=== PATIENT | female | born 1960 | race Caucasian/White ===

== ENCOUNTER → 2018-11-06 09:03 | Outpatient (CLI) | payer OTHER, SELFPAY ==
--- NOTE | 2018-11-06 | DI.RAD.S_ITS ---
PROCEDURE: XR LUMBAR SPINE MIN 4V INDICATIONS: BACK PAIN TECHNIQUE: 3 views of the lumbar spine acquired. COMPARISON: None. FINDINGS: Bones: 5 nonrib-bearing vertebrae are present. There is levoconvex scoliotic curvature with apex at T12-L1. This reduces with leftward bending and is slightly exacerbated with rightward bending. Multilevel significant disc space narrowing is present throughout the lumbar spine. Trace retrolisthesis is present of L2 on L3, L4 and L5. Foraminal narrowing is difficult to assess secondary to overlapping structures. However, it still to present to a significant degree at L2-3, L3-4 and L5-S1. No vertebral body compression fractures. No suspicious bony lesions. Soft tissues: Overlying bowel gas pattern is normal. No suspicious soft tissue calcifications. IMPRESSION: Scoliotic curvature as above with multilevel disc and foraminal narrowing. Dictated by: Alka Muñoz M.D. on 11/07/2018 at 17:00 Approved by: Alka Muñoz M.D. on 11/07/2018 at 17:02
--- NOTE | 2018-11-06 | DI.RAD.S_ITS ---
PROCEDURE: XR THORACIC SPINE 3V INDICATIONS: BACK PAIN TECHNIQUE: 3 views of the thoracic spine were acquired. COMPARISON: None. FINDINGS: Bones: No fractures or dislocations. No suspicious bony lesions. 12 pairs of ribs are noted, and appear intact where visualized. There is 31 degree dextroconvex S-shaped scoliotic curvature with apex at T8 and L2-3. Multilevel degenerative disc space narrowing is present. Soft tissues: No paravertebral stripe thickening. IMPRESSION: 1. Scoliotic curvature as above with degenerative change. Dictated by: Alka Muñoz M.D. on 11/06/2018 at 12:24 Approved by: Alka Muñoz M.D. on 11/06/2018 at 12:26
== END ==
PROVIDERS: Family Provider Family Medicine; PCP Family Medicine; Visit Provider Nurse Practitioner Family
DX: M54.5 Low back pain (principal); M48.04 Spinal stenosis, thoracic region; M48.061 Spinal stenosis, lumbar region without neurogenic claudication; M41.85 Other forms of scoliosis, thoracolumbar region; G89.29 Other chronic pain
CPT/HCPCS: 72072; 72110

== ENCOUNTER → 2019-07-31 10:40 | Outpatient (CLI) | payer OTHER, SELFPAY ==
--- NOTE | 2019-07-31 | DI.CT.S_ITS ---
PROCEDURE: CT CHEST WO CON INDICATIONS: Other chest pain TECHNIQUE: Noncontrast 5 mm thick sections acquired from the pulmonary apices to the posterior costophrenic angles. 1 mm lung window, 5 mm thick coronal and sagittal and 7 mm axial MIP reformats were then acquired. For radiation dose reduction, the following was used: automated exposure control, adjustment of mA and/or kV according to patient size. COMPARISON: [facility], CT, THORAX WITHOUT CONTRAST, 04/10/2017, 9:22. FINDINGS: Image quality: Excellent. Lungs and pleura: There is moderate bullous emphysema. No acute air space opacities. No pleural effusions or pneumothorax. Central and peripheral airways are patent and normal in caliber. There are multiple pulmonary nodules, unchanged since 04/10/17. 5 nodules are listed below: Nodule #1: Right middle lobe, 5 mm, solid, series 3 image 210. Nodule #2: Right middle lobe, 3 mm, solid, series 3 image 213. Nodule #3: Right upper lobe, 3 mm, solid, series 3 image 187. Nodule #4: Left upper lobe, 3 mm, solid, series 3 image 159. Nodule #5: Linula, 4 mm, ground glass, series 3 image 217. Mediastinum: Heart size is normal. No pericardial effusion. No mediastinal adenopathy by size criteria. Thoracic aorta and central pulmonary arteries are normal in size. Esophagus is normal in caliber. No hiatal hernia. Bones and chest wall: There is scoliosis. No suspicious bony lesions. No vertebral body compression fractures. No axillary or supraclavicular adenopathy by size criteria. There is a 3 mm nodule in the right thyroid lobe. Abdomen: Visualized upper abdominal solid organs and bowel loops appear normal in the absence of contrast. IMPRESSION: 1. Multiple pulmonary nodules bilaterally, unchanged since , most likely sequelae of granulomatous infections. 2. Moderate bullous emphysema. 3. A 3 mm right thyroid nodule. Thyroid ultrasound is suggested for followup. Dictated by: Moshe Yun M.D. on 07/31/2019 at 13:15 Approved by: Moshe Yun M.D. on 07/31/2019 at 17:22
== END ==
PROVIDERS: PCP Family Medicine; Visit Provider Family Medicine
DX: R07.89 Other chest pain (principal); J43.8 Other emphysema; R91.8 Other nonspecific abnormal finding of lung field; E04.1 Nontoxic single thyroid nodule
CPT/HCPCS: 71250

== ENCOUNTER → 2019-09-03 08:41 | Outpatient (CLI) | payer OTHER, SELFPAY ==
--- NOTE | 2019-09-03 | DI.US.S_ITS ---
PROCEDURE: US THYROID INDICATIONS: THYROID NODULE TECHNIQUE: Real-time scanning was performed of the thyroid gland, with image documentation. COMPARISON: [facility], CT, CT CHEST WO CON, 07/31/2019, 10:42. FINDINGS: Right: Thyroid lobe measures 4.3 x 1.4 x 1.6 cm, and is heterogeneous in echotexture. Left: Thyroid lobe measures 3.7 x 1.1 x 1.5 cm, and is homogenous in echotexture. Isthmus: 2.5 mm thick. Both lobes have a diffusely lobulated internal echotexture with multiple nodules, at least 4 on the right and at least 2 on the left, mostly iso-echoic with indistinct ill-defined margins. There is a coarse calcification in the left midpole measuring 2 mm. None of the nodules measure greater than 1.3 cm in maximal diameter. No definite extrathyroidal extension of nodule. IMPRESSION: 1. Nonenlarged, multinodular thyroid gland. 2. One year followup is recommended. Dictated by: Laura Emerson M.D. on 09/03/2019 at 11:09 Approved by: Laura Emerson M.D. on 09/03/2019 at 11:34
== END ==
PROVIDERS: PCP Family Medicine; Visit Provider Family Medicine
DX: E04.2 Nontoxic multinodular goiter (principal)
CPT/HCPCS: 76536

== ENCOUNTER → 2020-02-18 09:14 | Outpatient (CLI) | payer OTHER, SELFPAY ==
--- NOTE | 2020-02-18 | DI.RAD.S_ITS ---
PROCEDURE: XR KNEE LT 3V INDICATIONS: Chronic pain in both knees TECHNIQUE: 3 views of the knee were acquired. COMPARISON: [facility], CR, XR KNEE RT 3V, 02/18/2020, 8:51. [facility], CR, XR KNEE STANDING BI, 02/18/2020, 8:36. FINDINGS: Bones: No fractures or dislocations. No suspicious bony lesions. Soft tissues: No joint effusion. No suspicious soft tissue calcifications. IMPRESSION: A symmetric pattern of moderate medial and lateral compartment degenerative knee joint osteoarthritis is noted when compared to the right knee from earlier today. Mild patellofemoral joint osteoarthritis is present. No trauma found. Dictated by: Alex Mosley M.D. on 02/18/2020 at 11:43 Approved by: Alex Mosley M.D. on 02/18/2020 at 11:43
--- NOTE | 2020-02-18 | DI.RAD.S_ITS ---
PROCEDURE: XR KNEE RT 3V INDICATIONS: Chronic pain in both knees TECHNIQUE: A set of 3 views of the knee were acquired. COMPARISON: [facility], CR, XR KNEE STANDING BI, 02/18/2020, 8:36. FINDINGS: Bones: No fractures or dislocations. No suspicious bony lesions. There is a moderate degree of medial and lateral compartment joint space narrowing, no trauma found. Mild patellofemoral joint osteoarthritis is present, without effusion or loose body. Soft tissues: No joint effusion. No suspicious soft tissue calcifications. IMPRESSION: Mild to moderate degenerative changes along the 3 compartments of the right knee. No trauma found. Dictated by: Alex Mosley M.D. on 02/18/2020 at 11:42 Approved by: Alex Mosley M.D. on 02/18/2020 at 11:43
--- NOTE | 2020-02-18 | DI.RAD.S_ITS ---
PROCEDURE: XR KNEE STANDING BI INDICATIONS: Chronic midline low back pain TECHNIQUE: Single frontal views of the bilateral knees, weightbearing. COMPARISON: None. FINDINGS: Bones: No acute fractures or dislocations. Patellar alignment is normal on the sunrise view. No suspicious bony lesions. Joint spaces appear moderately reduced but with weightbearing. Soft tissues: No knee joint effusions. No suspicious soft tissue calcification. IMPRESSION: Moderately reduced medial and lateral compartment joint spaces on weight bearing frontal projections. No trauma found. Dictated by: Alex Mosley M.D. on 02/18/2020 at 11:25 Approved by: Alex Mosley M.D. on 02/18/2020 at 11:25
--- NOTE | 2020-02-18 | DI.RAD.S_ITS ---
PROCEDURE: XR LUMBAR SPINE MIN 4V INDICATIONS: Chronic pain in both knees TECHNIQUE: A set of 4 views of the lumbar spine acquired. COMPARISON: [facility], CR, XR LUMBAR SPINE MIN 4V, 11/06/2018, 9:43. FINDINGS: Bones: 5 nonrib-bearing vertebrae are present. There is levoscoliotic bony alignment, moderate in severity, previously present. No vertebral body compression fractures. No suspicious bony lesions. The degenerative disc disease present has not appreciably worsened from October 2018. Facet osteoarthritis also remains moderate in severity from L2-S1. Soft tissues: Overlying bowel gas pattern is normal. No suspicious soft tissue calcifications. Flexion/extension: There is normal range of motion, with preserved normal alignment. IMPRESSION: No stable appearance of degenerative disc disease that is moderate in severity from L2 inferiorly, with associated bilateral facet osteoarthritis also moderate in severity without worsening from October 2018 comparison studies. The convex leftward scoliosis has not worsened centered at the upper lumbosacral spine. No compression fracture has developed. Dictated by: Alex Mosley M.D. on 02/18/2020 at 11:26 Approved by: Alex Mosley M.D. on 02/18/2020 at 11:41
--- NOTE | 2020-02-18 | DI.RAD.S_ITS ---
PROCEDURE: XR HIP W PEL IF DONE LT MIN 4V INDICATIONS: Chronic hip pain TECHNIQUE: AP pelvis with lateral view(s) of the bilateral hip(s). COMPARISON: [facility], CR, XR LUMBAR SPINE MIN 4V, 11/06/2018, 9:43. FINDINGS: Bones: No fractures or dislocations. Pelvic ring appears intact. No suspicious bony lesions. Soft tissues: The visualized bowel gas pattern is normal. No suspicious soft tissue calcifications. IMPRESSION: Mild symmetric hip joint osteoarthritis without trauma. Dictated by: Alex Mosley M.D. on 02/18/2020 at 11:41 Approved by: Alex Mosley M.D. on 02/18/2020 at 11:42
== END ==
PROVIDERS: PCP Family Medicine; Referring Provider Family Medicine; Visit Provider Family Medicine
DX: M25.561 Pain in right knee (principal); M25.562 Pain in left knee; M17.12 Unilateral primary osteoarthritis, left knee; M25.552 Pain in left hip; M16.0 Bilateral primary osteoarthritis of hip; M54.5 Low back pain; M51.36 Other intervertebral disc degeneration, lumbar region; M47.816 Spondylosis without myelopathy or radiculopathy, lumbar region; M47.817 Spondylosis without myelopathy or radiculopathy, lumbosacral region; G89.29 Other chronic pain
CPT/HCPCS: 72110; 73521; 73562; 73565

== ENCOUNTER → 2021-05-19 14:13 | Outpatient (CLI) | payer OTHER, SELFPAY ==
[2021-05-19 20:02] LABS: COVID19 - ORCAS (NP or Nasal) Negative (Negative)
== END ==
PROVIDERS: PCP Family Medicine; Visit Provider Family Medicine
DX: Z20.822 Contact with and (suspected) exposure to COVID-19 (principal)
CPT/HCPCS: U0003

== ENCOUNTER → 2021-09-19 09:19 | Outpatient (CLI) | payer OTHER, SELFPAY ==
[2021-09-19 20:40] LABS: COVID19 - ORCAS (NP or Nasal) Negative (Negative)
== END ==
PROVIDERS: PCP Family Medicine; Visit Provider Physician Assistant
DX: Z20.822 Contact with and (suspected) exposure to COVID-19 (principal)
CPT/HCPCS: U0003

== ENCOUNTER 2021-09-20 09:35 | Day surgery (SDC) | payer OTHER, SELFPAY ==
[2021-09-20 11:52] VITALS: BP 151/72; PULSE 58; RESP 16; TEMP 36.4; O2SAT 98; BMI 25.0
[2021-09-20] MEDS: PROPARACAINE 0.5% OPHTH SOL 2 DROPS EYE-OP (12:00)
[2021-09-20] MEDS: CATARACT EYE COMPOUND (10 DROPS/SYRINGE) 3 DROPS EYE-OP (12:05)
--- NOTE | 2021-09-20 12:39 | PM.PREOP ---
Pre-operative Note Interval Note History & Physical reviewed/Exam performed by Physician: Yes Changes to H&P: No
--- NOTE | 2021-09-20 12:39 | PM.OP.1 ---
Operative Date/Time/Diagnoses Pre-op diagnosis: Nuclear Cataract Left eye Post-op diagnosis: same Procedure & Clinicians Same procedure as scheduled: Yes Surgeon: Richard Colon Anesthesia Type: MAC +/- and Sedation Operative Notes Procedure in detail: Patient brought to the operating suite. Tetracaine drops placed in the left eye. Marking instrument was used to felicita vertical and horizontal meridians. Patient was prepped and draped in sterile manner. Wire lid speculum was placed in the eye. Marking instrument was used to felicita the 70 degree meridian. Betadine drops were placed on the eye. This was irrigated. Lidocaine jelly was placed on the eye. A paracentesis port was created with a side-port blade. 0.1 mL 1% preservative free lidocaine was injected into the anterior chamber. The anterior chamber was deepened with viscoelastic. 2.6 mm keratome was used to create a temporal clear corneal incision. Cystotome and Utrata forceps were used to create continuous tear capsulorrhexis. Balanced salt solution was used to hydro dissect the nucleus. The phacoemulsification handpiece was inserted and the nucleus was removed using the stop and chop technique. The irrigation aspiration handpiece was inserted and the remaining cortex was removed. Anterior chamber was deepened with viscoelastic. An Moran [id number] intraocular lens with a power of 18.0 was injected into the capsular bag. Irrigation aspiration handpiece was inserted and the remaining viscoelastic was removed. The lens was rotated to the 70 degree meridian. Incision was hydrated with balanced salt solution and found to be leak free with pressure with Weck-Neela sponges. 0.1 mL Vigamox injected anterior chamber. 0.3 mL Kenalog 10 mg was injected subconjunctivally. Lid speculum was removed. The patient left the operating room in excellent condition. Complications: none Post-operative Condition: stable Disposition: same day surgery
[2021-09-20] MEDS: PHENYLEPHRINE/LIDOCAINE VIAL (OR) 0.2 ML EYE-OP (13:02)
[2021-09-20] MEDS: HYALURONATE SODIUM 30 MG-10 MG/ML SYRINGES 1 BOX INTRAOCULA (13:02)
[2021-09-20] MEDS: TETRACAINE 0.5% OPHTH DROPS 4 ML 2 DROPS EYE-OP (13:03)
[2021-09-20] MEDS: BALANCED SALT IRRIG SOLN NO.2 500 ML, EPINEPHrine 1 MG IRR (13:03)
[2021-09-20] MEDS: TRIAMCINOLONE 50 MG/5 ML VIAL INJ (13:03)
[2021-09-20] MEDS: LIDOCAINE 2% (GLYDO) 6 ML GEL TOP (13:03)
[2021-09-20] MEDS: MOXIFLOXACIN INJ 4 MG/0.8 ML VIAL 0.5 MG EYE-OP (13:04)
[2021-09-20 13:20] VITALS: BP 125/73; PULSE 70; RESP 16; TEMP 36.7; O2SAT 96
== END 2021-09-20 13:43 | disposition home or self-care (01) ==
PROVIDERS: PCP Family Medicine; Referring Provider Ophthalmology; Visit Provider Ophthalmology
PROC: (CPT 66984; principal; 2021-09-20 12:45)
DX: H25.12 Age-related nuclear cataract, left eye (principal); F17.210 Nicotine dependence, cigarettes, uncomplicated
CPT/HCPCS: 66984; J0171; J2250; J3301; V2787

== ENCOUNTER → 2021-10-17 09:39 | Outpatient (CLI) | payer OTHER, SELFPAY ==
[2021-10-17 20:34] LABS: COVID19 - ORCAS (NP or Nasal) Negative (Negative)
== END ==
PROVIDERS: PCP Family Medicine; Visit Provider Physician Assistant
DX: Z01.812 Encounter for preprocedural laboratory examination (principal); Z20.822 Contact with and (suspected) exposure to COVID-19
CPT/HCPCS: U0003

== ENCOUNTER 2021-10-18 10:37 | Day surgery (SDC) | payer OTHER, SELFPAY ==
[2021-10-18 11:16] VITALS: BP 118/65; PULSE 46; RESP 14; TEMP 36.8; O2SAT 98; BMI 25.0
[2021-10-18] MEDS: PROPARACAINE 0.5% OPHTH SOL 2 DROPS EYE-OP (11:32)
[2021-10-18] MEDS: CATARACT EYE COMPOUND (10 DROPS/SYRINGE) 3 DROPS EYE-OP (11:33)
--- NOTE | 2021-10-18 12:51 | P.OP.PRE_ITS ---
Pre-operative Note Interval Note History & Physical reviewed/Exam performed by Physician: Yes Changes to H&P: No Addendum Addendum Note: There are no non surgical alternatives for the patients condition. Deteriora tion of the patient's condition is expected. Delay may result in more complex future surgery.
--- NOTE | 2021-10-18 12:52 | P.OP_ITS ---
Operative Date/Time/Diagnoses Pre-op diagnosis: Nuclear cataract right eye Procedure & Clinicians Procedure: Cataract Surgery Same procedure as scheduled: Yes Surgeon: Richard Colon Anesthesia Type: MAC +/- and Sedation Operative Notes Procedure in detail: Patient brought to the operating suite. Tetracaine drops placed in the right eye. Marking instrument was used to felicita the vertical and horizontal meridians. Patient was prepped and draped in sterile manner. Wire lid speculum was placed in the eye. Marking instrument was used to felicita the 145 degree meridian. Betadine drops were placed on the eye. This was irrigated. Lidocaine jelly was placed on the eye. A paracentesis port was created with a side-port blade. 0.1 mL 1% preservative free lidocaine was injected into the anterior chamber. The anterior chamber was deepened with viscoelastic. 2.6 mm keratome was used to create a temporal clear corneal incision. Cystotome and Utrata forceps were used to create continuous tear capsulorrhexis. Balanced salt solution was used to hydro dissect the nucleus. The phacoemulsification handpiece was inserted and the nucleus was removed using the stop and chop technique. The irrigation aspiration handpiece was inserted and the remaining cortex was removed. Anterior chamber was deepened with viscoelastic. An Moran [id number] intraocular lens with a power of 22.0 was injected into the capsular bag. Irrigation aspiration handpiece was inserted and the remaining viscoelastic was removed. The lens was rotated to the 145 degree meridian. Incision was hydrated with balanced salt solution and found to be leak free with pressure with Weck-Neela sponges. 0.1 mL Vigamox injected anterior chamber. 0.3 mL Kenalog 10 mg was injected subconju nctivally. Lid speculum was removed. The patient left the operating room in excellent condition. Complications: none Post-operative Condition: stable Disposition: same day surgery
--- NOTE | 2021-10-18 13:18 | SUR.OPER ---
Supine on eye stretcher, head on extension cradle secured with tape. Arms tucked at sides with blanket. Pillow under knees.
[2021-10-18] MEDS: HYALURONATE SODIUM 30 MG-10 MG/ML SYRINGES 1 BOX INTRAOCULA (13:21)
[2021-10-18] MEDS: BALANCED SALT IRRIG SOLN NO.2 500 ML, EPINEPHrine 1 MG IRR (13:21)
[2021-10-18] MEDS: TRIAMCINOLONE 50 MG/5 ML VIAL INJ (13:21)
[2021-10-18] MEDS: MOXIFLOXACIN INJ 4 MG/0.8 ML VIAL 0.5 MG EYE-OP (13:21)
[2021-10-18] MEDS: PHENYLEPHRINE/LIDOCAINE VIAL (OR) 0.2 ML EYE-OP (13:21)
[2021-10-18] MEDS: LIDOCAINE 2% (GLYDO) 6 ML GEL TOP (13:22)
[2021-10-18] MEDS: TETRACAINE 0.5% OPHTH DROPS 4 ML 2 DROPS EYE-OP (13:22)
[2021-10-18 13:39] VITALS: BP 142/73; PULSE 45; RESP 16; TEMP 36.6; O2SAT 98
--- NOTE | 2021-10-18 13:43 | SUR.PHASEII ---
Pt ready to go, ride called, pt left when ready and left in stable condition.
== END 2021-10-18 13:59 | disposition home or self-care (01) ==
PROVIDERS: PCP Family Medicine; Referring Provider Ophthalmology; Visit Provider Ophthalmology
PROC: (CPT 66984; principal; 2021-10-18 12:45)
DX: H25.11 Age-related nuclear cataract, right eye (principal); F17.210 Nicotine dependence, cigarettes, uncomplicated
CPT/HCPCS: 66984; J0171; J2250; J3301; V2787

== ENCOUNTER → 2022-09-14 15:03 | Outpatient (CLI) | payer OTHER, SELFPAY ==
--- NOTE | 2022-09-14 15:04 | DI.US.S_ITS ---
PROCEDURE: US PELVIC COMPLETE INDICATIONS: Pelvic and perineal pain TECHNIQUE: Real-time scanning was performed of the pelvic organs, with image documentation. Additional endovaginal scanning was necessary due to incomplete visualization of the adnexal and endometrial structures by transabdominal scanning. COMPARISON: [facility], CT, ABDOMEN/PELVIS WITH CONTRAST, 06/30/2015, 12:52. FINDINGS: Uterus: Uterus is retroflexed and small in size at 4.3 x 3.2 x 2.5 cm. The myometrium is heterogeneous. The endometrium measures 5 mm combined thickness. Trace endometrial fluid is present. Ovaries: Ovaries are not visualized. Other: No pathologic free abdominal or pelvic fluid. IMPRESSION: 1. Atrophic uterus. Endometrium thickness is at upper limits normal for a postmenopausal woman. There is trace amount of endometrial fluid. A short-term follow up ultrasound is suggested in 6-12 weeks. 2. Nonvisualization of ovaries. 3. No pelvic free fluid. We strive to produce accurate, complete, and clear reports of imaging services. To assist us in improving patient care, this report was composed using standard report templates and voice recognition software. Therefore, it may contain abnormal punctuation, insertions and/or omissions. Occasional wrong-word or sound-alike substitutions may occur. Though we review the report and make efforts to correct it, we do recommend that the report be read carefully in proper context to recognize any text inaccuracies. Dictated by: Moshe Yun M.D. on 09/14/2022 at 21:09 Approved by: Moshe Yun M.D. on 09/14/2022 at 21:13
== END ==
PROVIDERS: PCP Family Medicine; Referring Provider Family Medicine; Visit Provider Family Medicine
DX: R10.2 Pelvic and perineal pain (principal)
CPT/HCPCS: 76830; 76856

== ENCOUNTER 2024-03-29 15:31 | Emergency (ER) | payer MEDICARE, OTHER, SELFPAY ==
[2024-03-29 15:41] VITALS: BP 155/71; PULSE 54; RESP 16; TEMP 36.8; O2SAT 95; BMI 25.8
--- NOTE | 2024-03-29 15:48 | DI.RAD.S_ITS ---
PROCEDURE: XR ANKLE LT MIN 3V INDICATIONS: Fall, rolled ankle, swelling and bruising TECHNIQUE: 3 views of the ankle were acquired. COMPARISON: None. FINDINGS: Bones: There is a mildly displaced fracture of the distal fibula, with intra-articular involvement. The talar dome demonstrates no loida abnormality. No suspicious lytic or blastic lesions are seen. Soft tissues: Soft tissue swelling is seen laterally. IMPRESSION: Mildly displaced, intra-articular fracture of the distal fibula. Dictated by: Fred Scott M.D. on 03/29/2024 at 15:19 Approved by: Fred Scott M.D. on 03/29/2024 at 15:20
--- NOTE | 2024-03-29 16:43 | ED_ITS ---
HPI - Extremity Injury (Lower) <GALLO Mak - Last Filed: 03/29/24 17:24> General Chief Complaint: Extremity Injury, Lower Stated Complaint: Rolled ankle Time Seen by Provider: 03/29/24 15:52 Source: patient Mode of arrival: Family Vehicle History of Present Illness HPI Narrative: 63-year-old female, former smoker, presents emergency department with a left ankle injury. Patient, who lives on [facility], tripped in her home and twisted her left ankle. Patient heard a pop and then was unable to bear weight. Patient did visit the urgent care on [facility], given a shot of Toradol, prescribed tramadol, fitted for boot and crutches and told to come to the emergency department for x-rays and evaluation. Patient reports she was unable to wear the boot due to the amount of pain she was experiencing, hence the reason she was sent to ED for x-rays. Patient denies hitting her head or any loss of consciousness. Related Data Previous Rx's Medication Instructions Recorded tramadol 50 mg tablet 50 mg PO Q6H PRN pain #20 tabs 03/29/24 Allergies Allergy/AdvReac Type Severity Reaction Status Date / Time Penicillins Allergy Mild Joint Pain Verified 10/09/23 11:04 clindamycin Allergy Unknown C-Diff Verified 10/09/23 11:04 Sulfa (Sulfonamide Allergy Unknown Verified 10/09/23 11:04 Antibiotics) Review of Systems <GALLO Mak - Last Filed: 03/29/24 17:24> Review of Systems Narrative: Narrative: See HPI. GENERAL: Denies chills, fatigue, fever, sweats. HEENT: Denies sinus pain, ear pain, sore throat, difficulty swallowing, dizziness. RESPIRATORY: Denies dyspnea, cough, wheezing, sputum. CARDIOVASCULAR: Denies chest pain, palpitations, edema. GASTROINTESTINAL: Denies nausea, vomiting, abdominal pain, diarrhea, constipation. : Denies dysuria, frequency, incontinence, hematuria, urinary retention, flank pain. MSK: Denies weakness. Endorses left ankle pain. SKIN: Denies rash, skin lesions, or pruritis. NEUROLOGIC: Denies weakness, dizziness, headache, numbness, confusion. PSYCHIATRIC: No concerning psychosocial issues. Patient History <GALLO Mak - Last Filed: 03/29/24 17:24> Surgical History Hx laparoscopic cholecystectomy Status post appendectomy Family History Mother Cancer Grandmother Heart disease Social History household members: friend(s) Smoking Status: Former smoker alcohol intake: current Smoking Status: Former smoker alcohol intake frequency: a few times a week Substance Use Type: does not use Exam <GALLO Mak - Last Filed: 03/29/24 17:24> Narrative Exam Narrative: Exam Narrative: GENERAL: This is a well-nourished, well-developed patient, in no acute distress HEAD: Atraumatic. Normocephalic. ENT: Nose without bleeding, purulent drainage. Airway patent. RESPIRATORY: Respiratory rate and effort are normal. MSK: Moves all extremities. Normal range of motion, no clubbing or edema. Neurovascularly intact. NEURO: A&O x 3. SKIN: Warm, dry, no rashes or lesions noted. ANKLE: There is swelling, bruising, but no asymmetry. There is no tenderness to general palpation. Sensation grossly intact. There is tenderness over the lateral malleolus, but no tenderness over the medial malleolus, proximal tibia/fibula. The anterior mortise is non-tender. Flexion and extension is intact. Unable to test for stability or laxity due to pain. The contralateral ankle exam is unremarkable. Initial Vital Signs Initial Vital Signs: Vital Signs Temperature 98.3 F 03/29/24 15:41 Pulse Rate 54 L 03/29/24 15:41 Respiratory Rate 16 03/29/24 15:41 Blood Pressure 155/71 H 03/29/24 15:41 Pulse Oximetry 95 03/29/24 15:41 Oxygen Delivery Method Room Air 03/29/24 15:41 Reviewed <Atul Leal DO - Last Filed: 03/29/24 17:36> Initial Vital Signs Initial Vital Signs: Vital Signs Temperature 98.3 F 03/29/24 15:41 Pulse Rate 54 L 03/29/24 15:41 Respiratory Rate 16 03/29/24 15:41 Blood Pressure 155/71 H 03/29/24 15:41 Pulse Oximetry 95 03/29/24 15:41 Oxygen Delivery Method Room Air 03/29/24 15:41 Course <GALLO Mak - Last Filed: 03/29/24 17:24> Orders Ordered: ED Orders 03/29/24 15:48 XR ankle LT min 3V Stat Vital Signs Vital signs: Vital Signs - 8 hr 03/29/24 15:41 Temperature 98.3 F Pulse Rate 54 L Respiratory Rate 16 Blood Pressure 155/71 H Pulse Oximetry 95 Oxygen Delivery Method Room Air <Atul Leal DO - Last Filed: 03/29/24 17:36> Orders Ordered: ED Orders 03/29/24 15:48 XR ankle LT min 3V Stat Vital Signs Vital signs: Vital Signs - 8 hr 03/29/24 15:41 Temperature 98.3 F Pulse Rate 54 L Respiratory Rate 16 Blood Pressure 155/71 H Pulse Oximetry 95 Oxygen Delivery Method Room Air MDM - Extremity Injury (Lower) <GALLO Mak - Last Filed: 03/29/24 17:24> Differential Diagnosis Differential diagnosis: Likely ankle sprain and strain and ankle fracture Imaging Data Extremity x-ray #1: Radiologist's Impression: [place] [address] XRay Report Signed Patient: Yaima Albarran MR#: [id number] : 1960 Acct:[id number] Age/Sex: 63 / F Date of Service: 03/29/24 Loc: ED Accession Number: [id number] Procedure: XR ankle LT min 3V Ordering Provider: Atul Leal D.O. PROCEDURE: XR ANKLE LT MIN 3V INDICATIONS: Fall, rolled ankle, swelling and bruising TECHNIQUE: 3 views of the ankle were acquired. COMPARISON: None. FINDINGS: Bones: There is a mildly displaced fracture of the distal fibula, with intra- articular involvement. The talar dome demonstrates no loida abnormality. No suspicious lytic or blastic lesions are seen. Soft tissues: Soft tissue swelling is seen laterally. IMPRESSION: Mildly displaced, intra-articular fracture of the distal fibula. Dictated by: Fred Scott M.D. on 03/29/2024 at 15:19 Approved by: Fred Scott M.D. on 03/29/2024 at 15:20 [facility] Narrative Medical decision making narrative: 63-year-old female with left ankle fracture. Assessment and HPI indicated the need for a x-ray. X-ray reveals a mildly displaced distal fibular fracture. Neurovascularly intact. Patient placed in a boot and crutches. Discussed supportive care measures such as Rest (modified activity), along with ice, compression wrap/splint-immobilize as directed and elevation above heart. Tylenol or Ibuprofen for discomfort. Discussed plan of care and return precautions with patient, verbalized understanding and was agreeable with course of action. Patient was escorted to the ED by a family friend who is a ENVIRONMENTAL LABORATORY TECHNICIAN. Discharge Plan Departure Patient Disposition: Home Clinical Impression: Ankle fracture Qualifiers: Encounter type: initial encounter Fracture type: closed Laterality: left Qualified Code(s): S82.892A - Other fracture of left lower leg, initial encounter for closed fracture Instructions: DI for Ankle Fracture Activity Restrictions/Additional Instructions: *You have been diagnosed with a left ankle fracture. The x-rays revealed a distal fibular fracture. We have fitted you for a boot and recommend you use this as much as possible to keep her ankle at 90?. Please use the crutches previously provided to you to keep weight off of that foot. Good supportive care includes Rest (modified activity), along with ice, splint-immobilize as directed and elevation above heart. Tylenol or Ibuprofen for discomfort. Please use the tramadol that was previously prescribed for breakthrough pain. Please follow-up with your family doctor in the next 7-10 days, or sooner for worsening symptoms. *What to do: *Please continue to take your regular medications as directed. [ ] New medication prescriptions sent to your pharmacy: [ ] [ ] New medication written as a paper prescription [x ] No new medications given *Please follow up with your primary care provider in 2-3 days, call for an appointment. Let them know you were seen in the Emergency Department and that we ask that you be seen in follow up. We will electronically transmit a record of today's note if your PCP is in our system *If you do not have a primary care provider please contact the [facility] Resource line at [phone]. They will ask some questions about your medical history and help get you set up with a doctor in the community. ? Return to ER if you should have any new, worsening or concerning symptoms, such as worsening pain, severe headache, confusion, chest pain, difficulty breathing, fever greater than 101 F, shaking chills, persistent vomiting to the point that you cannot drink fluids, or other new or worsening symptoms. Prescriptions: No Action ketorolac 60 mg/2 mL solution 60 mg IM ONCE Qty: 1 0RF tramadol 50 mg tablet 50 mg PO Q6H PRN (Reason: pain) Qty: 20 0RF Rx Instructions: 1-2 q 6 hours as needed for acute left ankle pain Referrals: Rose Gibson PA-C [Primary Care Provider] - Stand Alone Forms: Patient Portal/API ED Sign-out <Atul Leal DO - Last Filed: 03/29/24 17:36> Cosign ED Attending Cosignature Attestation: Dr Leal Co-Sign Statement: I was available for consultation during this patient's emergency department visit. This chart is signed by myself for administrative purposes only. I did not have direct contact with this patient during this visit. They were seen independently by the APC.
[2024-03-29 17:50] VITALS: BP 175/78; PULSE 48; RESP 16; O2SAT 98
== END 2024-03-29 17:59 | disposition home or self-care (01) ==
PROVIDERS: Emergency Provider Registered Nurse; PCP Physician Assistant
DX: S82.832A Other fracture of upper and lower end of left fibula, initial encounter for closed fracture (principal); W18.40XA Slipping, tripping and stumbling without falling, unspecified, initial encounter
CPT/HCPCS: 73610; 99281; 99283

== ENCOUNTER → 2024-06-27 10:30 | Outpatient (CLI) | payer MEDICARE, SELFPAY ==
--- NOTE | 2024-06-27 | DI.RAD.S_ITS ---
PROCEDURE: XR CHEST 2V INDICATIONS: Dyspnea TECHNIQUE: 2 views of the chest were acquired. COMPARISON: None. FINDINGS: Heart, mediastinum and pulmonary vascular: Heart is normal in size and configuration. Mediastinum is unremarkable. Pulmonary vascular is normal. Lungs: Clear Pleural spaces: Normal-no effusions or pneumothorax. Bones and soft tissues: Moderate scoliotic curve appreciated. There is mild chronic wedging of all thoracic vertebral bodies. IMPRESSION: No cardiopulmonary disease. Dictated by: Yosi Dumont M.D. on 06/30/2024 at 9:04 Approved by: Yosi Dumont M.D. on 06/30/2024 at 9:05
--- NOTE | 2024-06-27 | DI.RAD.S_ITS ---
PROCEDURE: XR DEXA AXIAL SKELETON INDICATIONS: OSTEOPENIA COMPARISON: None. FINDINGS: Lumbar Spine: Bone mineral density 0.968 g/cm2, T score -0.8 Left Hip: Bone mineral density 0.817 g/cm2, T score -1.0 Right Hip: Bone mineral density 0.836 g/cm2, T score -0.9 Fracture Risk Calculation (when applicable): 10-year fracture risk of a major osteoporotic fracture 10.0 percent and of a hip fracture 1.4 percent. (T score greater or equal to -1.0 to: NORMAL) (T score from -1.1 to -2.4: OSTEOPENIA) (T score less than or equal to -2.5: OSTEOPOROSIS) IMPRESSION: Normal bone density of the lumbar spine and hips, although approaching osteopenia at all sites. Follow-up guidelines as follows: Osteoporosis: Consider a repeat DEXA and Vertebral Fracture Assessment (VFA) exam in 2 years or sooner if medically necessary, to reassess this patient's status. Osteopenia: Consider a repeat DEXA in 2-3 years to reassess this patient's status, or if there is a new clinical indication. Normal: Consider a repeat DEXA in 5 years or sooner, or if there is a new clinical indication. All treatment decisions require clinical judgment and consideration of individual patient factors, including patient preferences, comorbidities, previous drug use, risk factors not captured in the FRAX model (e.g., frailty, falls, vitamin D deficiency, increased bone turnover, interval significant decline in bone density ) and possible under- or over-estimation of fracture risk by FRAX. In addition, the NOF Guide recommends that FDA-approved medical therapies be considered in postmenopausal women and men age >= 50 years with a: * Hip or vertebral (clinical or morphometric) fracture * T-score of <=-2.5 at the spine or hip * Ten-year fracture probability by FRAX of >= 3% for hip fracture or >=20% for major osteoporotic fracture. People with diagnosed cases of osteoporosis or at high risk for fracture should have regular bone mineral density tests. For patients eligible for Medicare, routine testing is allowed once every 2 years. The testing frequency can be increased to one year for patients who have rapidly progressing disease, those who are receiving or discontinuing medical therapy to restore bone mass, or have additional risk factors. Dictated by: Jose Galvez M.D. on 06/27/2024 at 14:08 Approved by: Jose Galvez M.D. on 06/27/2024 at 14:11
--- NOTE | 2024-06-27 | DI.MG.S_ITS ---
BILATERAL DIGITAL SCREENING MAMMOGRAM 3D/2D WITH CAD: 06/27/2024 CLINICAL: Routine screening. Baseline exam. Family history of breast cancer. No prior exams were available for comparison. The breasts are extremely dense, which lowers the sensitivity of mammography (category d />75% glandular tissue). Current study was also evaluated with a Computer Aided Detection (CAD) system. No significant masses, calcifications, or other findings are seen in either breast. IMPRESSION: NEGATIVE There is no mammographic evidence of malignancy. A 1 year screening mammogram is recommended. Based on Tyrer-Cuzick model (a risk assessment model), the patient's lifetime risk is 21.0% and her 10 year risk is 11.0%. If a patient has an elevated risk, a more comprehensive evaluation should be considered and/or a referral to a genetic counselor. The [place] [employer], [place] [employer], and NCCN Guidelines advise the consideration of Breast MRI as an adjunct to screening mammography in patients whose Lifetime risk to develop breast cancer is 20% or higher. This exam was interpreted at Station ID: [id number]. NOTE: For mammograms, a report in lay terms will be sent to the patient. Approximately 15% of breast malignancies will not be visualized mammographically. In the management of a palpable breast mass, a negative mammogram must not discourage biopsy of a clinically suspicious lesion. Electronically Signed By: Jerome gamble/leora:06/27/2024 13:11:48 letter sent: Normal Exam ACR BI-RADS Category 1: Negative
== END ==
PROVIDERS: PCP Family Medicine; Referring Provider Family Medicine; Visit Provider Family Medicine
DX: Z12.31 Encounter for screening mammogram for malignant neoplasm of breast (principal); Z80.3 Family history of malignant neoplasm of breast; R92.343 Mammographic extreme density, bilateral breasts; R06.00 Dyspnea, unspecified; M85.80 Other specified disorders of bone density and structure, unspecified site; Z78.0 Asymptomatic menopausal state
CPT/HCPCS: 71046; 77063; 77067; 77080